=== PATIENT | male | born 1970 | race Caucasian/White ===

== ENCOUNTER 2020-08-27 13:15 | Outpatient (CLI) | payer BC, SELFPAY ==
--- NOTE | ~2020-08-27 | US_ITS ---
EXAMINATION: US right upper quadrant DATE: 08/27/2020 14:14 INDICATION: Right upper quadrant abdominal pain. TECHNIQUE: Multiple grayscale and Doppler ultrasound images of the abdomen were obtained. COMPARISON: None FINDINGS: The pancreas is obscured by bowel gas. There is diffuse hepatic steatosis. There is normal flow in main portal vein. The gallbladder is normal in size and contains gallstones. No gallbladder w all thickening or sonographic Raymond sign. The common duct is normal and measures 4 mm. IMPRESSION: 1. Cholelithiasis. No evidence of acute cholecystitis. 2. Diffuse hepatic steatosis. Reviewed, dictated and finalized at location A. [employer]
== END 2020-08-27 13:16 | disposition home or self-care (01) ==
LOC: ANHIMG 13:20
PROVIDERS: PCP Internal Medicine; Visit Provider Internal Medicine
DX: K21.9 Gastro-esophageal reflux disease without esophagitis (principal); K80.20 Calculus of gallbladder without cholecystitis without obstruction; K76.0 Fatty (change of) liver, not elsewhere classified
CPT/HCPCS: 76705

== ENCOUNTER 2020-08-31 07:51 | Outpatient (CLI) | payer BC, SELFPAY ==
--- NOTE | 2020-08-31 07:52 | ECG_ITS ---
Measurements Intervals [place] Rate: 59 P: 23 [place]: 181 QRS: 28 QRSD: 100 T: 55 QT: 405 QTc: 403 Interpretive Statements SINUS BRADYCARDIA BASELINE WANDER- I, III, AVF, V4-V6 BORDERLINE ECG Electronically Signed On 08-31-2020 8:15:28 CONCRETE INSPECTOR by Gregory Jean-Baptiste D.O.
[2020-08-31 08:11] LABS: Basophils Percent Auto 0.5 % (0.2-1.2); Eosinophils Absolute Auto 0.2 K/mm3 (0-0.3); Hematocrit 47.7 % (42.0-52.0); Hemoglobin 16.1 g/dL (14.0-18.0); Immature Granulocyte Absolute 0.04 K/mm3 (0.00-0.031); Immature Granulocyte Percent A 0.5 % (0-0.5); Lymphocytes Absolute Auto 1.69 K/mm3 (0.9-3.2); Lymphocytes Percent Auto 22.7 % (18.3-44.2); Mean Corpuscular HGB Conc 33.8 g/dl (32-36); Mean Corpuscular Hemoglobin 29.4 pg (26-34); Mean Corpuscular Volume 87.2 fl (80-100); Mean Platelet Volume 10.3 fl (7.4-10.4); Monocytes Absolute Auto 0.7 K/mm3 (0.1-0.6); Monocytes Percent Auto 9.3 % (2.6-8.5); Neutrophils Absolute Auto 4.8 K/mm3 (1.3-6.7); Platelet Count Result 226 k/mm3 (150-375); Red Blood Count 5.47 M/mm3 (4.6-6.20); Red Cell Distribution Width 11.9 % (11.5-14.5); White Blood Count 7.4 K/mm3 (4.5-10.0)
[2020-08-31 08:27] LABS: Alanine Aminotransferase 89 U/L (4-50); Albumin Level 4.5 g/dL (3.5-5.1); Alkaline Phosphatase 64 U/L (38-126); Amylase 86 U/L (30-110); Anion Gap 7 mmol/L (8-16); Aspartate Amino Transferase 47 U/L (17-59); Bilirubin,Total 0.6 mg/dL (0.2-1.3); Blood Urea Nitrogen 18 mg/dL (9-20); Calcium 9.5 mg/dL (8.4-10.2); Carbon Dioxide 32 mmol/L (22-30); Chloride 102 mmol/L (98-107); Estimated Glomerular Filt Rate 59; Glucose 126 mg/dL (75-110); Lipase 59 U/L (23-300); Potassium 4.6 mmol/L (3.4-5.0); Sodium 141 mmol/L (137-145)
== END 2020-08-31 07:52 | disposition home or self-care (01) ==
LOC: ANHSURGERY 07:52
PROVIDERS: PCP Internal Medicine; Visit Provider Surgery
DX: Z01.818 Encounter for other preprocedural examination (principal); R00.1 Bradycardia, unspecified; I10 Essential (primary) hypertension
CPT/HCPCS: 36415; 80053; 82150; 82248; 83690; 85025; 93005

== ENCOUNTER 2020-09-03 01:35 | Outpatient (CLI) | payer BC, SELFPAY ==
[2020-09-03 18:52] LABS: SARS-CoV-2 RNA PCR Positive
== END 2020-09-03 01:36 | disposition home or self-care (01) ==
LOC: ANHCOVIDDT 01:35
PROVIDERS: PCP Internal Medicine; Visit Provider Surgery
DX: Z01.812 Encounter for preprocedural laboratory examination (principal); U07.1 COVID-19
CPT/HCPCS: 87635; C9803; U0003

== ENCOUNTER 2020-09-24 08:07 | Outpatient (CLI) | payer BC, SELFPAY ==
[2020-09-24 17:10] LABS: SARS-CoV-2 RNA PCR Negative
== END 2020-09-24 08:08 | disposition home or self-care (01) ==
LOC: ANHCOVIDDT 08:08
PROVIDERS: PCP Internal Medicine; Visit Provider Surgery
DX: Z01.812 Encounter for preprocedural laboratory examination (principal); Z20.828 Contact with and (suspected) exposure to other viral communicable diseases
CPT/HCPCS: 87635; C9803; U0003

== ENCOUNTER 2020-09-27 00:24 | Day surgery (SDC) | payer BC, SELFPAY ==
[2020-08-30 14:17] VITALS: BMI 39.9
--- NOTE | 2020-09-25 13:37 | P.PNAN_ITS ---
Anes - Initial Pre Proc Eval Procedure: Operation Date: 09/27/20 11:30 Proposed Procedures p Laparoscopic Cholecystectomy, Possible Intra Operative Cholangiogram, Possible Open - Bakari Lin MD Date/Time: 09/25/20 13:37 Surgeon: Bakari Lin MD Pre Op Diagnosis: chronic cholecystitis with stones Patient Data Age: 49 Gender: M Height: 1.91 m Weight: 145 kg Allergies Allergy/AdvReac Type Severity Reaction Status Date / Time No Known Allergies Allergy Mild Verified 09/27/20 08:59 Home Medications Medication Instructions Recorded Confirmed Type alprazolam 1 mg tablet 1 mg PO TID 08/28/20 09/27/20 History bupropion HCl 300 mg 24 hr tablet, 300 mg PO QAM 08/28/20 09/27/20 History extended release gabapentin 300 mg capsule 300 mg PO QPM 08/28/20 09/27/20 History lisinopril 10 mg tablet 10 mg PO HS 08/28/20 09/27/20 History pantoprazole 40 mg tablet,delayed 40 mg PO QAM 08/28/20 09/27/20 History release Patient hx anesthesia problems: none Family hx anesthesia problems: none [facility] Past Medical History Medical History (Updated 09/25/20 @ 13:38 by Salvador Church DO) Anxiety Depression GERD (gastroesophageal reflux disease) History of panic attacks Hypertension Idiopathic neuropathy Surgical History Surgical History History of vasectomy Ulnar nerve abnormality Left ulnar nerve reimplantation Family History Family History Mother Diabetes mellitus Hypertension Social History Social History Smoking packs per day: 1 Smoking cigarettes per day: 20.0 Years smoked: 18 Smoking pack-years: 18.00 Smoking status: Current every day smoker Smokeless tobacco user: chewing tobacco Smoking end date: 03/28/12 Alcohol intake: never Alcohol use details: SOCIAL DRINKER, QUIT 10 YEARS AGO Substance use: never Living arrangements: with family 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 Questions were solicited and answers provided to the satisfaction of the patient/family/POA.
[2020-09-27] VITALS (8 sets, daily range): BP systolic 139–173; BP diastolic 76–109; PULSE 64–84; RESP 10–20; TEMP 36.4–37.6; O2SAT 94–97
[2020-09-27] MEDS: KETOROLAC 15 MG/ML VIAL (*BKC) IV PUSH (09:29)
[2020-09-27] MEDS: LACTATED RINGERS 1,000 ML 30 ML IV CONT ×2 (09:29→13:55)
[2020-09-27] MEDS: ACETAMINOPHEN 500 MG TABLET 1000 MG PO (09:29)
[2020-09-27] MEDS: MIDAZOLAM HCL (*CRX) 2 MG/2 ML VIAL IV PUSH (09:30)
--- NOTE | 2020-09-27 11:24 | WPDHPUPDATE1 ---
History and Physical Update Update Date/Time: 09/27/20 11:24 History and Physical has been reviewed, including an updated exam of the patient. There are NO changes in the patient's condition. Patient does have a small umbilical hernia which we will try to repair with to 0 Vicryl sutures as we completed cholecystectomy. Risks, benefits, and alternatives Of a laparoscopic cholecystectomy, possible intraoperative cholangiogram, possible open cholecystectomy and repair of a small umbilical hernia have been discussed and questions answered. Patient agrees to proceed with procedure.
--- NOTE | 2020-09-27 11:26 | SUR.PREOP ---
Up to bathroom. Patient calm.
[2020-09-27] MEDS: ceFAZolin 3 GM/D5W 100 ML 100 ML IVPB (11:38)
[2020-09-27] MEDS: BUPIVACAINE HCL 0.5% PF 30 ML VIAL 20 ML INFILTRATE (12:11)
--- NOTE | 2020-09-27 14:15 | PM.PROC ---
Procedure Note - Detailed Date of procedure: 09/27/20 Pre-op diagnosis: chronic cholecystitis with stones Chronic Cholecystitis with Cholelithiasis Post-op diagnosis: same Procedure performed: Laparoscopic Cholecystectomy Description of procedure: Patient was seen preoperatively in the holding area and risks, benefits and alternatives confirmed. Patient was taken to the operating room and general anesthesia was induced. A time out was then preformed with the surgery team confirming patient and site of surgery. The abdomen was prepped and draped in the usual sterile fashion. A transverse incision was made just below and in the umbilicus with an 11 blade knife. this was done so that we could carefully dissect out the small umbilical hernia that was in the upper right corner of the umbilical area. We carefully dissected the skin off of this and then I was able to enlarge the opening with an 11 blade knife after placing 2 stay chews sutures on either side and just inferior to the umbilical defect. I placed these 2 stay sutures of O- Vicryl on either side of the mid-line fascia beneath the umbilicus and was then able to slide in the Siddiqi cannula through the fascial defect into the peritoneum. First under low flow and then under high flow the abdomen was insufflated with carbon dioxide never exceeding a pressure of 14. Three 5 mm trocars were then introduced under direct vision. The following trocars were introduced under direct vision: a 5 mm in the epigastrium and two 5 mm trocars along the right costal margin laterally in the subcostal area. There was significant omental adhesions to the underside of the gallbladder. These were taken down with blunt and sharp dissection using some Bovie cautery for hemostasis. We were able to dissect this completely away from the neck of the gallbladder. I then carefully used the L-shaped cautery and the [place] dissector to dissect out the triangle of Calot. I then was able to dissect out both the cystic duct and cystic artery and identify a window of safety. The gall bladder was grasped and the cystic duct and artery were dissected free and clipped with an 5 mm endo-clip senior coldfusion developer. The cystic duct and artery were clipped with use of 2 clips on the patient's side 1 on the gallbladder side utilizing a 5 mm endoclip-senior coldfusion developer. The cystic duct was then transected. The cystic artery was also transected at this point. The gall bladder was removed using electrocautery and then removed from the abdomen using a large 10 mm grasper via the umbilical incision. In order to get the large stone out of the abdomen within the gallbladder I did make the fascial defect slightly larger with Parikh scissors. The trocars were removed visualizing hemostasis and the remaining gas evacuated. The large trocar site at the umbilicus was closed with use of the 2 stay sutures of 0 Vicryl mentioned above and also two figure of 8 O-Vicryl sutures. The 2 stay sutures mentioned above on either side of the fascia were also tied together to help approximate this midline fascia. Upon careful palpation there did not seem to be any fascial defect underneath the umbilical incision following this closure. Further local anesthetic was placed into each incision for postop pain control. The skin incisions were closed with subcuticular suture of 4-0 Monocryl. Surgical glue then was applied to all the incisions. Patient tolerated the procedure well was taken to the recovery room in good condition. Anesthesia: GETA Surgeon: Bakari Lin MD Decision Unit Rn: Haroon GOULD, OR registered nurse first assistant Estimated blood loss (mL): 25 Drains: No Packing: No Pathology: yes (Gallbladder) Complications: No immediate complications Condition: stable Disposition: PACU Findings: Gallbladder had some adhesions to the lower half of it the were taken down and a good amount of fat around the triangle of BRIDGETT. We were able to see a good window of safety and did not have a lot of bleedi
[2020-09-27] MEDS: fentaNYL CITRATE INJ (*CRX) 100 MCG/2 ML VIAL 25 MCG IV PUSH ×2 (14:55→15:01)
--- NOTE | 2020-09-27 15:23 | SUR.PHASEII ---
Addendum entered by Liseth Nguyen RN 09/27/20 15:24: CORRECTION: BP 171/106. Original Note: DR. PALACIO AWARE OF PT BP 170/105; OKAY'D TO GO HOME.
== END 2020-09-27 16:05 | disposition home or self-care (01) ==
PROVIDERS: PCP Internal Medicine; Visit Provider Surgery
PROC: 0FT44ZZ Resection of Gallbladder, Percutaneous Endoscopic Approach (ICD-10-PCS; CPT 47562; principal; 2020-09-27 11:00)
DX: K80.10 Calculus of gallbladder with chronic cholecystitis without obstruction (principal); I10 Essential (primary) hypertension; G60.9 Hereditary and idiopathic neuropathy, unspecified; K21.9 Gastro-esophageal reflux disease without esophagitis; F41.8 Other specified anxiety disorders; F17.210 Nicotine dependence, cigarettes, uncomplicated; F17.220 Nicotine dependence, chewing tobacco, uncomplicated; E66.01 Morbid (severe) obesity due to excess calories; Z68.41 Body mass index [BMI] 40.0-44.9, adult
CPT/HCPCS: 47562; 88304; A9270; J0690; J1100; J1170; J1885; J2250; J2405; J2704; J2710; J3010; J7120

== ENCOUNTER 2021-04-24 10:22 | Outpatient (CLI) | payer BC, SELFPAY ==
--- NOTE | 2021-04-24 | EST_ITS ---
Patient Info Name: Betito Tan Age: 50 years : 1970 Gender: Male Ht: 75 in Wt: 325 lbs BSA: 2.85 m2 Exam Date: 04/24/2021 11:51 AM Exam Location: [facility] Stress Patient Status: Outpatient Admit Date: 04/24/2021 Staff Ordering Physician: Teddy, Pradeep Saez MD Attending Provider: Teddy, Pradeep Saez MD Exercise Technologist: Janes Raymond RDCS, RT Exercise Physician: Meryl Gallegos MD Exam Type: CA stress test treadmill w NM Study Info A treadmill exercise stress test was performed. A nuclear stress test was performed. Summary 1. The patient exercised for 8 minutes and 45 seconds of the Sean protocol. For the last minute, the grade and speed of the treadmill were reduced as the patient became dyspneic and unable to keep up with the treadmill. 2. Resting hypertension, 142/96 mmHg. Hypertensive blood pressure response reaching 221/99 mmHg. 3. Decreased exercise tolerance for age. 4. No exercise-induced chest pain. The chest test was terminated because of dyspnea. 5. No ischemic EKG changes seen. 6. Nuclear medicine images to follow. Protocol: Manual Mode Stress ECG Details Stage: REST Duration (min): 1 min : 15 sec [place]: --- Speed (mph): 0.0 Grade (%): 0 HR (bpm): 65 SBP (mmHg): 142 DBP (mmHg): 96 METS: --- Stage: REST Duration (min): 11 min : 0 sec [place]: --- Speed (mph): 0.0 Grade (%): 0 HR (bpm): 65 SBP (mmHg): 142 DBP (mmHg): 96 METS: --- Stage: STAGE 1 Duration (min): 1 min : 0 sec [place]: --- Speed (mph): 1.7 Grade (%): 10 HR (bpm): 83 SBP (mmHg): 142 DBP (mmHg): 96 METS: --- Stage: STAGE 1 Duration (min): 2 min : 0 sec [place]rais: --- Speed (mph): 1.7 Grade (%): 10 HR (bpm): 91 SBP (mmHg): 142 DBP (mmHg): 96 METS: --- Stage: STAGE 1 Duration (min): 3 min : 0 sec [place]: --- Speed (mph): 1.7 Grade (%): 10 HR (bpm): 97 SBP (mmHg): 184 DBP (mmHg): 78 METS: --- Stage: STAGE 2 Duration (min): 1 min : 0 sec [place]: --- Speed (mph): 2.5 Grade (%): 12 HR (bpm): 109 SBP (mmHg): 184 DBP (mmHg): 78 METS: --- Stage: STAGE 2 Duration (min): 2 min : 0 sec [place]: --- Speed (mph): 2.5 Grade (%): 12 HR (bpm): 118 SBP (mmHg): 204 DBP (mmHg): 103 METS: --- Stage: STAGE 2 Duration (min): 3 min : 0 sec [place]: --- Speed (mph): 2.5 Grade (%): 12 HR (bpm): 131 SBP (mmHg): 204 DBP (mmHg): 103 METS: --- Stage: STAGE 3 Duration (min): 1 min : 0 sec [place]: --- Speed (mph): 3.4 Grade (%): 14 HR (bpm): 136 SBP (mmHg): 221 DBP (mmHg): 99 METS: --- Stage: STAGE 3 Duration (min): 2 min : 0 sec [place]: --- Speed (mph): 3.4 Grade (%): 14 HR (bpm): 151 SBP (mmHg): 221 DBP (mmHg): 99 METS: --- Stage: STAGE 3 Duration (min): 2 min : 47 sec [place]: --- Speed (mph): 3.0 Grade (%): 12 HR (bpm)
--- NOTE | ~2021-04-24 | NM_ITS ---
EXAMINATION: NM stress w perf spect multi DATE: 04/24/2021 13:08 INDICATION: Atypical chest pain TECHNIQUE: Rest images were obtained following intravenous administration of 8.8 mCi Tc99m tetrofosmi n (Bionostra). The patient performed an exercise activity. At peak exercise, 28.5 mCi Tc99m tetrofosmin (Neongaview) was administered intravenously, and stress images were obtained. Data was reconstructed in to short axis and horizontal and vertical long axis SPECT images. Gated SPECT images were also obtain ed. COMPARISON: None. FINDINGS: There is normal left ventricular perfusion without definite evidence of reversible or fixed perfusion abnormality to suggest ischemia or infarction. There is normal left ventricular chamber size, wall motion and ejection fraction. Left ventricular ejection fraction measures 54%. IMPRESSION: 1. Normal myocardial perfusion at rest and during stress. 2. Left ventricular ejection fraction measuring 54%. Reviewed, dictated and finalized at location A.
== END 2021-04-24 10:23 | disposition home or self-care (01) ==
LOC: ANHCARD 10:29
PROVIDERS: PCP Internal Medicine; Visit Provider Internal Medicine
DX: R07.89 Other chest pain (principal)
CPT/HCPCS: 78452; 93017; A9502

== ENCOUNTER 2025-04-18 12:12 | Emergency (ER) | payer OTHER, SELFPAY ==
--- NOTE | ~2025-04-18 | XR_ITS ---
XR finger 4th LT min 2V 04/18/2025 13:11 Indication: Left fourth finger pain Procedure: 3 views left fourth finger Comparison: No prior studies for comparison. Findings: No fracture, subluxation or dislocation. There is mild soft tissue swelling. No foreign bod ies. Impression: 1: No acute fracture. Reviewed, dictated and finalized at location A. Impression: 1: No acute fracture.
--- OUTSIDE RECORDS SUMMARY | 2025-04-18 12:14 | XMS_ITS | Clinical Summary ---
Author Organization [facility] Address [address] [place] [address] Care Team Providers Care Guest Room Attendant Name Role Phone Pradeep Espinal MD Primary Care Provider [phone] Source Comments [facility],non-owned Affiliates and Associated Physician Practices is amultiple site organization consisting of ambulatory clinics and hospital sitesin [place], [place], [place] and [place]. This disclosure is being madepursuant to the Care Everywhere program and may not contain all information available regarding this patient. Last updated 18.[facility] Allergies No known active allergies Medications * Be aware that medications may not be up to date on this document. Alwaysverify current medications with the patient. lisinopril (PRINIVIL; ZESTRIL) 10 MG tablet Take 10 mg by mouth once daily Active ALPRAZolam (XANAX) 0.5 MG tablet Take 0.5 mg by mouth 3 times daily as needed Active omeprazole (PRILOSEC) 40 MG capsule Take 40 mg by mouth daily before breakfast Active Family History Medical History Relation Name Comments Alcohol abuse Father Alcohol abuse Mother COPD - Chronic Obstructive Pulmonary Disease Mother Hypertension Mother Relation Name Status Comments Father Alive Mother Social History Tobacco Use Types Packs/Day Years Used Date Smoking Tobacco: Former Cigarettes 1 20 Smokeless Tobacco: Never Tobacco Cessation:Counseling Given: No Alcohol Use Standard Drinks/Week Comments No 0 (1 standard drink = 0.6 oz pur e alcohol) Sex and Gender Information Value Date Recorded Sex Assigned at Not on file Legal Sex Male 1:29 PM CDT Gender Identity Not on file Sexual Orientation Not on file Last Filed Vital Signs Vital Sign Reading Time Taken Comments Blood Pressure 117/87 01/25/2019 8:22 AM CDT Pulse 53 01/25/2019 8:22 AM CDT Temperature 36.3 C (97.4 F) 01/25/2019 8:22 AM CDT Respiratory Rate - - Oxygen Saturation - - Inhaled Oxygen Concentration - - Weight 134.3 kg (296 lb) 01/25/2019 8:22 AM CDT Height 190.5 cm (6' 3) 01/25/2019 8:22 AM CDT Body Mass Index 37 01/25/2019 8:22 AM CDT Plan of Treatment Health Maintenance Due Date Last Done Comments COLOGUARD (AGES 45-75) - COL ON CA SCREENING 1970 COLON MONITORING 1970 COLONOSCOPY - COLON CA SCREENING 1972 CT COLONOGRAPHY - COLON CA SCREENING 1970 Colorectal Cancer Screening 1970 FIT - COLON CA SCREENING 1970 FLEX SIG - COLON CA SCREENING 1970 LIPID TESTING 1970 HIV SCREENING 12/05/1987 HEPATITIS C SCREENING 11/30/1990 DTAP/TDAP/TD VACCINES (1 - Tdap) 12/05/1991 HEPATITIS B VACCINE (1 of 3 - 19+ 3-dose series) 12/05/1991 SCREENING FOR DIABETES 01/25/2019 PNEUMOCOCCAL VACCINE 50+ (1 of 1 - PCV) 2022 ZOSTER VACCINE (1 of 2) 2022 COVID-19 VACCINE (1 - 2023-2 5 season) 2024 DEPRESSION SCREENING 09/28/2024 INFLUENZA VACCINE (#1) 2025 HIB VACCINE Aged Out No longer eligi ble based on patient's age to complete this topic HPV VACCINE Aged Out No longer eligi ble based on patient's age to complete this topic MENINGOCOCCAL (Group B) VACC INE SHARED DECISION-MAKING Aged Out No longer eligibl e based on patient's age to complete this topic MENINGOCOCCAL GROUPS A/C/Y/W VACCINE Aged Out No longer eligible b ased on patient's age to complete this topic Care Teams Guest Room Attendant Relationship Specialty Start Date End Date Pradeep Espinal MD [address] [place] [phone] [facility] - General 01/25/19
[2025-04-18 12:46] VITALS: BP 206/97; PULSE 69; RESP 20; TEMP 36.6; O2SAT 94
--- NOTE | 2025-04-18 14:45 | ED_ITS ---
HPI - Wound/Laceration General Chief Complaint: Wound/Laceration Stated Complaint: left 4th finger lac Time Seen by Provider: 04/18/25 14:24 History of Present Illness HPI narrative: Patient is a 54-year-old male who presents to the ER with a laceration to his left ring finger. He [place] and his left hand was smashed between the marker and a stud. Patient denies pain at the time of examination. He believes his last tetanus shot was within the last 7 years. Patient endorses a history of anxiety, hypertension, and GERD. He denies any decreased range of motion, bleeding disorders, or joint swelling. Related Data Home Medications ?Medication ?Instructions ?Recorded ?Confirmed ?Last Taken ?Type alprazolam 1 mg tablet (Xanax) 1 mg PO TID 08/28/20 10/11/20 09/27/20 06:30 History bupropion HCl 300 mg 24 hr tablet, 300 mg PO QAM 08/28/20 10/11/20 09/27/20 06:30 History extended release gabapentin 300 mg capsule 300 mg PO QPM 08/28/20 10/11/20 09/26/20 History lisinopril 10 mg tablet 10 mg PO HS 08/28/20 10/11/20 09/26/20 History pantoprazole 40 mg tablet,delayed 40 mg PO QAM 08/28/20 10/11/20 09/26/20 History release (Protonix) Allergies Allergy/AdvReac Type Severity Reaction Status Date / Time No Known Allergies Allergy Mild Verified 10/11/20 09:12 Review of Systems Review of Systems: All systems reviewed & are unremarkable except as noted in HPI and below PMFSH Past Medical History Medical History History of panic attacks Depression Idiopathic neuropathy Anxiety Hypertension GERD (gastroesophageal reflux disease) Surgical History Surgical History Ulnar nerve abnormality Left ulnar nerve reimplantation History of vasectomy Family History Family History Mother Diabetes mellitus Hypertension Social History Social History Smoking packs per day: 1 Smoking cigarettes per day: 20.0 Years smoked: 18 Smoking pack-years: 18.00 Smoking status: Former smoker Smokeless tobacco user: chewing tobacco Smoking end date: 03/28/12 Alcohol intake: former Alcohol use details: SOCIAL DRINKER, QUIT 10 YEARS AGO Substance use: never Living arrangements: with family Occupation/Education: occupation 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 HEAD: Normocephalic, atraumatic. NECK: Supple. No adenopathy, no masses. RESPIRATORY: Airway patent, respirations nonlabored. Clear to auscultation bilaterally, no rales, rhonchi, wheezing. CARDIOVASCULAR: Regular rate and rhythm without murmurs, rubs, or gallops. Peripheral pulses 2+ and equal bilaterally. ABDOMINAL: Soft, nontender, nondistended, no hepatosplenomegaly. Normoactive BS. MUSCULOSKELETAL: Moves all extremities. Strength/ROM intact without gross deformities. SKIN: Warm, dry, normal color. No rashes. Left ring finger circular laceration, bleeding controlled. NEURO: A&O X3. Speech clear. Cranial nerves II-XII intact. No ataxic movements. PSYCHIATRIC: Appropriate mood and affect. Normal interaction. Course Vital Signs Vital signs: Vital Signs Temperature 36.6 C 04/18/25 12:46 Pulse Rate 69 04/18/25 12:46 Respiratory Rate 20 04/18/25 12:46 Blood Pressure 206/97 H 04/18/25 12:46 Pulse Oximetry 94 04/18/25 12:46 Oxygen Delivery Room Air 04/18/25 12:46 Temperature 36.6 C 04/18/25 12:46 Pulse Rate 69 04/18/25 12:46 Respiratory Rate 20 04/18/25 12:46 Blood Pressure 206/97 H 04/18/25 12:46 Pulse Oximetry 94 04/18/25 12:46 Oxygen Delivery Room Air 04/18/25 12:46 Procedures Laceration Laceration 1: Date: 04/18/25 Time: 15:00 Site: hand Side (If applicable): left Size (cm): 2 Description: flap Depth: simple, single layer Local Anesthetic: lidocaine 1% Amount of anesthesia used (mL): 2 Pre-repair: wound explored and irrigated extensively ====== Skin Level ====== Skin layer closed with: nylon Size (cm): 5-0 Number of sutures: 6 Technique: simple, interrupted ====== Subcutaneous Layer ====== ====== Muscle Layer ====== ====== Tendon Layer ====== MDM - Wound/Laceration MDM Narrative Medical decision making narrative: Patient is a 54-year-old male who presents to the ER with a laceration to his left ring finger. He reports he was [place] a marker at the cemetery when it slipped and his left hand was smashed between the marker and a stud. Patient denies pain at the time of examination. He believes his last tetanus shot was within the last 7 years. Patient endorses a history of anxiety, hypertension, and GERD. He denies any decreased range of motion, bleeding disorders, or joint swelling. Imaging Ordered: Left hand x-ray Medications Ordered: Tdap IM, lidocaine 1% infiltrate Results: Pt's L hand x-ray indicates No acute fracture. Diagnosis: L ring finger laceration Consults: hand specialists (outpatient), Dr. Valencia Patient Education/Shared MDM: Results of imaging shared with patient. He denies pain at time of laceration repair. Patient strongly advised to follow-up with his PCP in 10-14 days for suture removal. He will not be discharged home with any new prescriptions. Patient was given his Tdap immunization today. Strict return precautions provided. Patient verbalized understanding and is in agreement with plan. Vital signs stable at time of discharge. All questions answered. Differential Diagnosis Differential diagnosis: Likely laceration, abrasion and avulsion of skin Imaging Data Attestation: I personally reviewed and interpreted this imaging study as follows: Radiologist's impression: Impressions Finger X-Ray 04/18/25 13:12 Impression: 1: No acute fracture. Discharge Plan Discharge Clinical Impression: Laceration, Laceration of left ring finger Patient Disposition: Home Condition: Stable Instructions: Antibiotic Form, Laceration (ED) Additional Instructions: Please return to the ER with any worsening symptoms. Follow-up with primary care provider in 10-14 days for suture removal. Take all medications as prescribed, including regularly scheduled medications. You may use Tylenol for pain control. Patient Language: Ghanaian Prescriptions: No Action alprazolam [Xanax] 1 mg tablet 1 mg PO TID bupropion HCl 300 mg tablet extended release 24 hr 300 mg PO QAM gabapentin 300 mg capsule 300 mg PO QPM lisinopril 10 mg tablet 10 mg PO HS pantoprazole [Protonix] 40 mg tablet,delayed release (DR/EC) 40 mg PO QAM Follow-up/Referrals: Teddy,Pradeep Saez MD [Primary Care Provider] - Stand Alone Forms: Work/School Release IP Time of Disposition: 15:15
[2025-04-18] MEDS: LIDOCAINE 1% LOCAL INJ 10 ML VIAL INFILTRATE (14:55)
--- OUTSIDE RECORDS SUMMARY | 2025-04-18 15:09 | XMS_ITS | Clinical Summary ---
Author Organization [facility] Address [address] [address] Care Team Providers Care Nail Welter Name Role Phone Pradeep Espinal MD Primary Care Provider [phone] Source Comments [facility],non-owned Affiliates and Associated Physician Practices is amultiple site organization consisting of ambulatory clinics and hospital sitesin [place], [place], [place] and [place]. This disclosure is being madepursuant to the Care Everywhere program and may not contain all information available regarding this patient. Last updated 18.[facility] Allergies No known active allergies Medications * [...] age to complete this topic Care Teams Nail Welter Relationship Specialty Start Date End Date Pradeep Espinal MD [address] [place] [phone] [facility] - General 01/25/19
[2025-04-18] MEDS: TETANUS,DIPHTHERIA,AC PERTUSSIS ADULT (0.5 ML) BOOSTRIX IM (15:14)
== END 2025-04-18 15:39 | disposition home or self-care (01) ==
PROVIDERS: Emergency Provider Registered Nurse; PCP Internal Medicine
DX: S61.215A Laceration without foreign body of left ring finger without damage to nail, initial encounter (principal); Z23 Encounter for immunization; I10 Essential (primary) hypertension; K21.9 Gastro-esophageal reflux disease without esophagitis; G60.9 Hereditary and idiopathic neuropathy, unspecified; F41.9 Anxiety disorder, unspecified; F32.A Depression, unspecified; Z87.891 Personal history of nicotine dependence; W23.2XXA Caught, crushed, jammed or pinched between a moving and stationary object, initial encounter; Z79.899 Other long term (current) drug therapy
CPT/HCPCS: 12001; 73140; 90471; 90715; 99283; J2003